=== PATIENT | female | born 1960 | race Hispanic/Latino ===

== ENCOUNTER 2020-11-11 15:52 | Emergency (ER) | payer BC ==
[2020-11-11 16:39] LABS: #Eosinphils 0.2 10x3/uL (0.0-0.5); #Monocytes 0.6 10x3/uL (0.0-1.1); %Basophils 0.6 % (0.0-2.0); %Eosinophils 3.8 % (0.0-6.0); %Lymphocytes 21.2 % (18.0-47.0); %Monocytes 12.6 % (0.0-10.0); Hemoglobin 14.3 g/dL (12.0-15.5); Mean Corpuscular HGB CONC 32.6 g/dL (32.0-36.0); Mean Corpuscular Hemoglobin 33.2 pg (27.0-33.0); Mean Corpuscular Volume 101.9 fl (81.6-98.3); Mean Platelet Volume 12.1 fl (7.4-10.4); Platelet Count 77 10x3/uL (150-450); RBC Distribution Width 13.5 % (11.5-14.5); Red Blood Cell (RBC) Count 4.31 10x6/uL (3.90-5.03); White Blood Cell (WBC) Count 4.7 10x3/uL (3.5-10.5)
[2020-11-11 16:41] LABS: #Neutrophils 2.9 10x3/uL (1.5-8.4); %Neutrophils 61.8 % (40.0-75.0)
[2020-11-11 16:52] LABS: ALT (SGPT) 37 U/L (8-55); AST (SGOT) 42 U/L (5-34); Alkaline Phosphatase 105 U/L (40-110); Anion Gap 12 mmol/L (10-20); BUN (Urea Nitrogen) 32 mg/dL (9.8-20.1); Bilirubin, Total 0.5 mg/dL (0.2-1.2); Calc. Creatinine Clearance 0 mL/min (70-130); Calcium 9.7 mg/dL (7.8-10.44); Carbon Dioxide 26 mmol/L (23-31); Chloride 105 mmol/L (98-107); Globulin 3.7 g/dL (2.4-3.5); Glucose 111 mg/dL (80-115); Protein, Total 7.7 g/dL (5.8-8.1); Sodium 139 mmol/L (136-145)
[2020-11-11 17:30] LABS: Platelet Morphology Comment Appears Decreased; RBC Morphology Normal
== END 2020-11-11 18:56 | disposition home or self-care (01) ==
LOC: CSHERS 15:52
DX: K92.2 Gastrointestinal hemorrhage, unspecified (principal); E78.5 Hyperlipidemia, unspecified; Z79.82 Long term (current) use of aspirin; Z79.899 Other long term (current) drug therapy
CPT/HCPCS: 36415; 80053; 85025; 99284

== ENCOUNTER 2020-11-21 09:11 | Outpatient (CLI) | payer BC | END 2020-11-21 09:12 | disposition home or self-care (01) | LOC: CSHCT 09:11 | PROVIDERS: ATTEND Physician Assistant Medical | DX: K62.5 Hemorrhage of anus and rectum (principal); K75.4 Autoimmune hepatitis; K74.3 Primary biliary cirrhosis; K74.60 Unspecified cirrhosis of liver; K76.6 Portal hypertension; K80.20 Calculus of gallbladder without cholecystitis without obstruction | CPT/HCPCS: 74170 ==

== ENCOUNTER 2021-06-03 13:39 | Outpatient (CLI) | payer BC | END 2021-06-03 13:40 | disposition home or self-care (01) | LOC: CSHCP 13:39 | PROVIDERS: ATTEND Internal Medicine Critical Care Medicine | DX: M34.9 Systemic sclerosis, unspecified (principal) | CPT/HCPCS: 94060; 94726; 94729; 94760 ==

== ENCOUNTER 2021-12-11 08:44 | Outpatient (CLI) | payer BC | END 2021-12-11 08:45 | disposition home or self-care (01) | LOC: CSHMAMMO 08:44 | PROVIDERS: ATTEND Internal Medicine Rheumatology | DX: Z13.820 Encounter for screening for osteoporosis (principal); M85.89 Other specified disorders of bone density and structure, multiple sites | CPT/HCPCS: 77080 ==

== ENCOUNTER 2022-02-23 09:00 | Outpatient (CLI) | payer BC | END 2022-02-23 09:01 | disposition home or self-care (01) | LOC: CSHLAB 09:00 | PROVIDERS: ATTEND Internal Medicine Critical Care Medicine | DX: Z20.822 Contact with and (suspected) exposure to COVID-19 (principal) | CPT/HCPCS: 87811 ==

== ENCOUNTER 2022-02-26 15:38 | Outpatient (CLI) | payer BC | END 2022-02-26 15:39 | disposition home or self-care (01) | LOC: CSHCP 15:38 | PROVIDERS: ATTEND Internal Medicine Critical Care Medicine | DX: M34.9 Systemic sclerosis, unspecified (principal) | CPT/HCPCS: 94010; 94726; 94729; 94760 ==

== ENCOUNTER 2022-09-28 09:29 | Outpatient (CLI) | payer BC | END 2022-09-28 09:30 | disposition home or self-care (01) | LOC: CSHULT 09:29 | PROVIDERS: ATTEND Internal Medicine Gastroenterology | DX: K74.60 Unspecified cirrhosis of liver (principal); K51.30 Ulcerative (chronic) rectosigmoiditis without complications; L40.9 Psoriasis, unspecified; K74.3 Primary biliary cirrhosis; K75.4 Autoimmune hepatitis; K76.6 Portal hypertension; I85.10 Secondary esophageal varices without bleeding; I86.8 Varicose veins of other specified sites; K80.20 Calculus of gallbladder without cholecystitis without obstruction | CPT/HCPCS: 76705 ==

== ENCOUNTER 2023-03-15 09:04 | Outpatient (CLI) | payer BC | END 2023-03-15 09:05 | disposition home or self-care (01) | LOC: CSHCP 09:04 | PROVIDERS: ATTEND Internal Medicine Critical Care Medicine | DX: M34.9 Systemic sclerosis, unspecified (principal); R94.2 Abnormal results of pulmonary function studies | CPT/HCPCS: 94010; 94726; 94729; 94760 ==

== ENCOUNTER 2023-03-18 12:48 | Outpatient (CLI) | payer BC | END 2023-03-18 12:49 | disposition home or self-care (01) | LOC: CSHULT 12:48 | PROVIDERS: ATTEND Internal Medicine Critical Care Medicine | DX: M34.9 Systemic sclerosis, unspecified (principal); I34.0 Nonrheumatic mitral (valve) insufficiency; I51.89 Other ill-defined heart diseases | CPT/HCPCS: 93306 ==

== ENCOUNTER 2023-10-28 10:14 | Outpatient (CLI) | payer MEDICARE, BC | END 2023-10-28 10:15 | disposition home or self-care (01) | LOC: CSHULT 10:14 | PROVIDERS: ATTEND Internal Medicine Gastroenterology | DX: R10.13 Epigastric pain (principal); K51.30 Ulcerative (chronic) rectosigmoiditis without complications; K75.4 Autoimmune hepatitis; K74.60 Unspecified cirrhosis of liver; K74.3 Primary biliary cirrhosis; K80.20 Calculus of gallbladder without cholecystitis without obstruction; N28.1 Cyst of kidney, acquired | CPT/HCPCS: 76705 ==

== ENCOUNTER 2024-01-20 13:44 | Outpatient (CLI) | payer MEDICARE, BC | END 2024-01-20 13:45 | disposition home or self-care (01) | LOC: CSHMAMMO 13:44 | PROVIDERS: ATTEND Internal Medicine Rheumatology | DX: M81.0 Age-related osteoporosis without current pathological fracture (principal); M85.851 Other specified disorders of bone density and structure, right thigh | CPT/HCPCS: 77080 ==

== ENCOUNTER 2024-02-15 09:48 | Outpatient (CLI) | payer MEDICARE, BC | END 2024-02-15 09:49 | disposition home or self-care (01) | LOC: CSHRAD 09:48 | PROVIDERS: ATTEND Internal Medicine Rheumatology | DX: M81.0 Age-related osteoporosis without current pathological fracture (principal) | CPT/HCPCS: 72070 ==

== ENCOUNTER 2024-06-13 12:21 | Outpatient (CLI) | payer MEDICARE, BC | END 2024-06-13 12:22 | disposition home or self-care (01) | LOC: CSHCP 12:21 | PROVIDERS: ATTEND Internal Medicine Critical Care Medicine | DX: M34.9 Systemic sclerosis, unspecified (principal) | CPT/HCPCS: 94010; 94726; 94729; 94760 ==